=== PATIENT | female | born 1975 | race Caucasian/White ===

== ENCOUNTER 2024-09-22 08:03 | Outpatient (CLI) | payer OTHER ==
[~2024-09-22] VITALS: Ht 165.1 cm; Wt 90.9 kg
[2024-09-22 08:50] VITALS: BP 102/51; TEMP 97.6; O2SAT 96
[2024-09-22 09:25] VITALS: BP 113/58; TEMP 98.1; O2SAT 100
[2024-09-22 10:00] VITALS: BP 100/51; TEMP 98; O2SAT 97
== END 2024-09-22 10:05 ==
LOC: M INFU 08:03
PROVIDERS: ATTEND Internal Medicine Gastroenterology
DX: K70.11 Alcoholic hepatitis with ascites (principal); R60.1 Generalized edema; K76.82 Hepatic encephalopathy
CPT/HCPCS: 36430; P9047

== ENCOUNTER 2024-09-24 08:30 | Outpatient (CLI) | payer OTHER ==
[2024-09-24 09:00] VITALS: BP 109/59; TEMP 97.9; O2SAT 97
[2024-09-24 09:30] VITALS: BP 107/55; TEMP 97.6; O2SAT 98
[2024-09-24 10:15] VITALS: BP 111/56; TEMP 97.1; O2SAT 98
== END 2024-09-24 10:25 ==
LOC: M INFU 08:30 → EDUNIT# 08:30 → M INFU 10:25
PROVIDERS: ATTEND Internal Medicine Gastroenterology
DX: K70.11 Alcoholic hepatitis with ascites (principal); R60.1 Generalized edema; K76.82 Hepatic encephalopathy
CPT/HCPCS: 36430; P9047

== ENCOUNTER 2024-09-26 08:15 | Outpatient (CLI) | payer OTHER ==
[~2024-09-26] VITALS: Ht 165.1 cm; Wt 90.9 kg
[2024-09-26 08:20] VITALS: BP 112/52; O2SAT 97
[2024-09-26 10:10] VITALS: BP 104/53; O2SAT 98
== END 2024-09-26 10:10 ==
LOC: M INFU 08:15
PROVIDERS: ATTEND Internal Medicine Gastroenterology
DX: K70.10 Alcoholic hepatitis without ascites (principal); R18.8 Other ascites; R60.1 Generalized edema; K76.82 Hepatic encephalopathy
CPT/HCPCS: 36430; P9047

== ENCOUNTER 2024-09-29 08:00 | Outpatient (CLI) | payer OTHER ==
[~2024-09-29] VITALS: Ht 165.1 cm; Wt 90.9 kg
[2024-09-29 08:07] VITALS: BP 106/53; O2SAT 94
[2024-09-29 09:18] VITALS: BP 91/52; TEMP 97.4; O2SAT 95
== END 2024-09-29 09:30 ==
LOC: EDUNIT# 08:00 → M INFU 08:00
PROVIDERS: ATTEND Internal Medicine Gastroenterology
DX: K70.11 Alcoholic hepatitis with ascites (principal); K76.82 Hepatic encephalopathy
CPT/HCPCS: 36430; P9047

== ENCOUNTER → 2024-10-03 | Outpatient (CLI) | payer OTHER | LOC: M INFU 07:45 → EDUNIT# 08:00 | PROVIDERS: ATTEND Internal Medicine Gastroenterology | DX: Z53.9 Procedure and treatment not carried out, unspecified reason (principal) ==

== ENCOUNTER 2024-12-25 13:20 | Outpatient (CLI) | payer OTHER ==
[~2024-12-25] VITALS: Ht 165.1 cm; Wt 91.0 kg
[2024-12-25 13:41] VITALS: BP 96/48; TEMP 97.9; O2SAT 98
[2024-12-25 14:15] VITALS: BP 90/45; O2SAT 99
== END 2024-12-25 14:20 | disposition home or self-care (01) ==
LOC: M INFU 13:20
PROVIDERS: ATTEND Internal Medicine Gastroenterology
DX: D64.9 Anemia, unspecified (principal); K70.10 Alcoholic hepatitis without ascites; R60.1 Generalized edema; K65.2 Spontaneous bacterial peritonitis; R01.1 Cardiac murmur, unspecified
CPT/HCPCS: 36430; P9047

== ENCOUNTER 2024-12-29 12:52 | Outpatient (CLI) | payer OTHER ==
[~2024-12-29] VITALS: Ht 165.1 cm; Wt 91.5 kg
[2024-12-29 13:00] VITALS: BP 108/55; O2SAT 99
[2024-12-29 13:50] VITALS: BP 114/53; O2SAT 98
== END 2024-12-29 13:50 | disposition home or self-care (01) ==
LOC: M INFU 12:52
PROVIDERS: ATTEND Internal Medicine Gastroenterology
DX: K70.10 Alcoholic hepatitis without ascites (principal); R60.1 Generalized edema; F64.9 Gender identity disorder, unspecified; K65.2 Spontaneous bacterial peritonitis; R01.1 Cardiac murmur, unspecified
CPT/HCPCS: 36430; P9047

== ENCOUNTER 2024-12-31 12:54 | Outpatient (CLI) | payer OTHER ==
[2024-12-31 13:10] VITALS: BP 106/52; TEMP 98; O2SAT 99
[2024-12-31 13:20] VITALS: BP 100/54; TEMP 98; O2SAT 100
== END 2024-12-31 13:50 ==
LOC: M INFU 12:54
PROVIDERS: ATTEND Internal Medicine Gastroenterology
DX: K70.10 Alcoholic hepatitis without ascites (principal); R60.1 Generalized edema; D64.9 Anemia, unspecified; K65.2 Spontaneous bacterial peritonitis; R01.1 Cardiac murmur, unspecified
CPT/HCPCS: 36430; P9047

== ENCOUNTER 2025-01-02 13:15 | Outpatient (CLI) | payer OTHER ==
[2025-01-02 13:30] VITALS: BP 117/55; O2SAT 100
[2025-01-02 14:08] VITALS: BP 111/55; O2SAT 100
== END 2025-01-02 14:15 ==
LOC: M INFU 13:15
PROVIDERS: ATTEND Internal Medicine Gastroenterology
DX: K70.10 Alcoholic hepatitis without ascites (principal); R60.1 Generalized edema; D64.9 Anemia, unspecified
CPT/HCPCS: 36430; P9047

== ENCOUNTER 2025-01-05 15:06 | Outpatient (CLI) | payer OTHER ==
[2025-01-05 15:30] VITALS: BP 107/55; O2SAT 100
[2025-01-05 15:53] VITALS: BP 105/58; O2SAT 100
== END 2025-01-05 15:55 | disposition home or self-care (01) ==
LOC: M INFU 15:06
PROVIDERS: ATTEND Internal Medicine Gastroenterology
DX: K70.10 Alcoholic hepatitis without ascites (principal); R60.1 Generalized edema; D64.9 Anemia, unspecified; K65.2 Spontaneous bacterial peritonitis
CPT/HCPCS: 36430; P9047

== ENCOUNTER 2025-01-07 10:58 | Outpatient (CLI) | payer OTHER ==
[~2025-01-07] VITALS: Ht 165.1 cm; Wt 72.7 kg
[2025-01-07 11:00] VITALS: BP 110/56; O2SAT 99
[2025-01-07 11:26] VITALS: BP 120/72; TEMP 98; O2SAT 98
[2025-01-07 11:45] VITALS: BP 100/57; TEMP 98.6; O2SAT 100
== END 2025-01-07 11:50 ==
LOC: M INFU 10:58
PROVIDERS: ATTEND Internal Medicine Gastroenterology
DX: K70.10 Alcoholic hepatitis without ascites (principal)
CPT/HCPCS: 36430; P9047

== ENCOUNTER 2025-01-09 16:20 | Outpatient (CLI) | payer OTHER ==
[2025-01-09 16:25] VITALS: BP 118/56; O2SAT 99
[2025-01-09 16:43] VITALS: BP 118/56; TEMP 99; O2SAT 99
[2025-01-09 17:00] VITALS: BP 116/55; TEMP 97.5
== END 2025-01-09 17:00 ==
LOC: M INFU 16:20
PROVIDERS: ATTEND Internal Medicine Gastroenterology
DX: K70.10 Alcoholic hepatitis without ascites (principal)
CPT/HCPCS: 36430; P9047

== ENCOUNTER 2025-01-12 14:52 | Outpatient (CLI) | payer OTHER ==
[2025-01-12 15:10] VITALS: BP 102/55; O2SAT 100
[2025-01-12 15:51] VITALS: BP 98/53; O2SAT 100
== END 2025-01-12 15:55 | disposition home or self-care (01) ==
LOC: M INFU 14:52
PROVIDERS: ATTEND Internal Medicine Gastroenterology
DX: K70.10 Alcoholic hepatitis without ascites (principal)
CPT/HCPCS: 36430; P9047

== ENCOUNTER 2025-01-14 12:51 | Outpatient (CLI) | payer OTHER ==
[2025-01-14 13:00] VITALS: BP 120/72; O2SAT 98
[2025-01-14 13:45] VITALS: BP_SYST 126; BP_SYST 99; BP_DIAS 50; BP_DIAS 72; O2SAT 100
== END 2025-01-14 13:50 ==
LOC: M INFU 12:51
PROVIDERS: ATTEND Internal Medicine Gastroenterology
DX: K70.10 Alcoholic hepatitis without ascites (principal); R60.1 Generalized edema
CPT/HCPCS: 36430; P9047

== ENCOUNTER 2025-01-16 13:28 | Outpatient (CLI) | payer OTHER ==
[2025-01-16 13:33] VITALS: BP 104/58; O2SAT 100
[2025-01-16 14:01] VITALS: BP 117/56; O2SAT 100
== END 2025-01-16 14:05 ==
LOC: M INFU 13:28
PROVIDERS: ATTEND Internal Medicine Gastroenterology
DX: K70.10 Alcoholic hepatitis without ascites (principal); R60.1 Generalized edema
CPT/HCPCS: 96365; P9047

== ENCOUNTER 2025-03-05 15:24 | Outpatient (CLI) | payer OTHER ==
[2025-03-05 15:43] VITALS: BP 115/68; O2SAT 91
[2025-03-05 16:45] VITALS: BP 118/70; O2SAT 92
== END 2025-03-05 16:45 | disposition home or self-care (01) ==
LOC: M INFU 15:24
PROVIDERS: ATTEND Internal Medicine Gastroenterology
DX: K70.11 Alcoholic hepatitis with ascites (principal)
CPT/HCPCS: 36592; 99195; P9047

== ENCOUNTER 2025-03-19 14:45 | Outpatient (CLI) | payer OTHER ==
[~2025-03-19] VITALS: Ht 165.1 cm; Wt 82.0 kg
[2025-03-19 14:50] VITALS: BP 124/56; O2SAT 95
[2025-03-19 16:00] VITALS: BP 128/79; O2SAT 97
== END 2025-03-19 16:13 ==
LOC: M INFU 14:45
PROVIDERS: ATTEND Internal Medicine Gastroenterology
DX: K70.11 Alcoholic hepatitis with ascites (principal); R60.1 Generalized edema; D64.9 Anemia, unspecified
CPT/HCPCS: 36430; P9047